=== PATIENT | female | born 1955 | race Caucasian/White ===

== ENCOUNTER 2017-04-12 10:44 | Emergency (ER) | payer BC ==
[2017-04-12 11:34] VITALS: BP 130/74
--- NOTE | 2017-04-12 12:25 | UC ---
Ear Complaint HPI - HPI Summary HPI Summary: right ear hearing loss and whistling sound tried to flush last night but not much help - History of Current Complaint Chief Complaint: UCEar Stated Complaint: EAR COMPLAINT Time Seen by Provider: 04/12/17 12:03 Hx Obtained From: Patient ?: No Onset/Duration: Gradual Onset, Lasting Days, Still Present Severity Initially: Mild Severity Currently: Moderate Aggravating Factors: Nothing Alleviating Factors: Nothing Associated Signs/Symptoms: Positive: Hearing Loss - Allergies/Home Medications Allergies/Adverse Reactions: Allergies Allergy/AdvReac Type Severity Reaction Status Date / Time Sulfa Antibiotics Allergy Unknown Hives Verified 04/12/17 11:27 Home Medications: Home Medications Fluticasone NASAL SPRAY 50MCG* [Flonase NASAL SPRAY 50MCG*] 2 spray BOTH NARES DAILY 04/12/17 [History Confirmed 04/12/17] Ibandronate Sodium* [Boniva*] 3 mg IV 04/12/17 [History] Omeprazole CAP* [Prilosec CAP* 20 MG] 20 mg PO DAILY PRN 04/12/17 [History Confirmed 04/12/17] PMH/Surg Hx/FS Hx/Imm Hx Previously Healthy: No GI/ History: Gastroesophageal Reflux - Surgical History Surgical History: Yes Surgery Procedure, Year, and Place: LUMPECTOMY- RIGHT BREAST. SHOULDER SURGERY - Family History Known Family History: Positive: None - Social History Occupation: Retired Lives: With Family Alcohol Use: Occasionally Substance Use Type: None Smoking Status (MU): Never Smoked Tobacco - Immunization History Most Recent Influenza Vaccination: FALL 2016 Review of Systems Constitutional: Negative Skin: Negative Eyes: Negative ENT: Ear Ache - right ear feels clogged Respiratory: Negative Cardiovascular: Negative Gastrointestinal: Negative Genitourinary: Negative Motor: Negative Neurovascular: Negative Musculoskeletal: Negative Neurological: Negative Psychological: Negative Is Patient Immunocompromised?: No All Other Systems Reviewed And Are Negative: Yes Physical Exam Triage Information Reviewed: Yes Appearance: Well-Appearing, No Pain Distress, Well-Nourished Vital Signs: Initial Vital Signs Temp 98.3 F 04/12/17 11:28 Pulse 91 04/12/17 11:28 Resp 18 04/12/17 11:28 BP 130/74 04/12/17 11:28 Pulse Ox 99 04/12/17 11:28 Vital Signs Reviewed: Yes Eye Exam: Normal Eyes: Positive: Conjunctiva Clear ENT Exam: Normal ENT: Positive: Normal ENT inspection, Hearing grossly normal, Pharynx normal, TMs normal - left, Tonsillar swelling, Tonsillar exudate, Trismus, Muffled voice , Hoarse voice, Uvula midline, Other - right tm occluded-with cerumen. Negative : Nasal congestion, Nasal drainage, Sinus tenderness Dental Exam: Normal Neck exam: Normal Neck: Positive: Supple, Nontender, No Lymphadenopathy Respiratory Exam: Normal Respiratory: Positive: Chest non-tender, No respiratory distress, No accessory muscle use Cardiovascular Exam: Normal Cardiovascular: Positive: Pulses Normal, Brisk Capillary Refill Musculoskeletal Exam: Normal Musculoskeletal: Positive: Strength Intact, ROM Intact, No Edema Neurological Exam: Normal Neurological: Positive: Alert, Muscle Tone Normal Psychological Exam: Normal Skin Exam: Normal Re-Evaluation - Re-Evaluation Second Eval Change: Improved - right flushed- with complete resolve of sx Ear Complaint Course/Dx - Course Course Of Treatment: avoid soap and q-tip in ear follow with pcp prn - Differential Dx/Diagnosis Provider Diagnoses: resolved cerumen impaction right ear Discharge - Discharge Plan Condition: Stable Disposition: HOME Patient Education Materials: Cerumen Impaction (ED) Referrals: [facility] [place] [facility] [Outside] - If Needed
== END 2017-04-12 12:30 | disposition home or self-care (01) ==
LOC: UCCORT 10:44
DX: H61.21 Impacted cerumen, right ear (principal); K21.9 Gastro-esophageal reflux disease without esophagitis
CPT/HCPCS: 99202; G0463

== ENCOUNTER 2019-03-13 16:30 | Emergency (ER) | payer BC ==
[2019-03-13 17:06] VITALS: BP 136/68
--- NOTE | 2019-03-13 17:09 | UC ---
Ear Complaint HPI - HPI Summary HPI Summary: Patient is a 63-year-old female presenting with right ear pressure and feeling of fullness 10 days. Patient states she has tried peroxide and over-the- counter debrox without relief. Patient states that about once a year she gets a cerumen impaction that is relieved with ear irrigation. Denies decreased hearing. Denies tinnitus. Denies URI symptoms including congestion. Denies left ear symptoms. Denies headache. - History of Current Complaint Chief Complaint: UCEar Stated Complaint: RT EAR BUILD UP Time Seen by Provider: 03/13/19 17:04 Hx Obtained From: Patient Onset/Duration: Gradual Onset, Lasting Days Pain Intensity: 0 - Allergies/Home Medications Allergies/Adverse Reactions: Allergies Allergy/AdvReac Type Severity Reaction Status Date / Time Sulfa (Sulfonamide Allergy Unknown Hives Verified 03/13/19 16:58 Antibiotics) Home Medications: Home Medications Apixaban* [Eliquis*] 2.5 mg PO BID 03/13/19 [History Confirmed 03/13/19] Atorvastatin* [Lipitor*] 10 mg PO DAILY 03/13/19 [History Confirmed 03/13/19] predniSONE TAB* [Deltasone 1 MG TAB*] 0.5 mg PO DAILY 03/13/19 [History Confirmed 03/13/19] proPAFENone TAB* [Rythmol*] 150 mg PO BID 03/13/19 [History Confirmed 03/13/19] PMH/Surg Hx/FS Hx/Imm Hx GI/ History: Gastroesophageal Reflux - Surgical History Surgical History: Yes Surgery Procedure, Year, and Place: LUMPECTOMY- RIGHT BREAST. SHOULDER SURGERY - Family History Known Family History: Positive: None, Non-Contributory - Social History Lives: With Family Alcohol Use: None Substance Use Type: None Smoking Status (MU): Never Smoked Tobacco - Immunization History Most Recent Influenza Vaccination: FALL 2016 Review of Systems All Other Systems Reviewed And Are Negative: Yes Constitutional: Positive: Negative Eyes: Positive: Negative ENT: Positive: Ear Ache - R ear fullness. Negative: Sore Throat, Nasal Discharge, Sinus Congestion, Sinus Pain/Tenderness Respiratory: Positive: Negative Cardiovascular: Positive: Negative Gastrointestinal: Positive: Negative Neurological: Negative: Headache Physical Exam Triage Information Reviewed: Yes Appearance: Well-Appearing, No Pain Distress, Well-Nourished Vital Signs: Initial Vital Signs Temp 97.7 F 12/05/19 17:01 Pulse 98 03/13/19 17:01 Resp 16 03/13/19 17:01 BP 136/68 03/13/19 17:01 Pulse Ox 98 03/13/19 17:01 Vital Signs Reviewed: Yes Eyes: Positive: Conjunctiva Clear ENT: Positive: Hearing grossly normal, Pharynx normal, TMs normal - cerumen removed from L ear. TMs intact b/l, nl light reflex and landmarks observed., Uvula midline. Negative: Nasal congestion, Nasal drainage, Tonsillar swelling, Tonsillar exudate, Sinus tenderness Neck exam: Normal Neck: Positive: Supple, Nontender, No Lymphadenopathy Respiratory: Positive: No respiratory distress Neurological: Positive: Alert Psychological: Positive: Age Appropriate Behavior Skin Exam: Normal Ear Complaint Course/Dx - Course Course Of Treatment: Discussed no sign of infection, TM perforation, effusion, or cerumen impaction of right ear. Instructed patient to follow up with PCP or ENT if symptoms persist. Patient voiced understanding and agreed with the treatment plan. - Differential Dx/Diagnosis Differential Diagnosis/HQI/PQRI: URI Provider Diagnosis: Sensation of fullness in right ear Discharge ED - Sign-Out/Discharge Documenting (check all that apply): Patient Departure All imaging exams completed and their final reports reviewed: No Studies - Discharge Plan Condition: Stable Disposition: HOME Patient Education Materials: Earache (ED) Referrals: [facility] [Outside] [facility] [place] [facility] [Outside] Stephen Lenz MD [Medical Doctor] - If Needed Additional Instructions: As discussed, you had no sign of an ear infection, wax build-up, or fluid behind the ear. Follow-up with your PCP or one of the referrals listed below for further evaluation if her symptoms persist. - Billing Disposition and Condition Condition: STABLE Disposition: Home - Attestation Statements Provider Attestation: I was available for consult. This patient was seen by the PATRICIA. The patient was not presented to, seen by, or examined by me. -Steffi
== END 2019-03-13 17:33 | disposition home or self-care (01) ==
LOC: UCCORT 16:30
DX: H93.8X1 Other specified disorders of right ear (principal); Z88.1 Allergy status to other antibiotic agents
CPT/HCPCS: 69210; 99212; G0463